=== PATIENT | male | born 1985 | race Caucasian/White ===

== ENCOUNTER 2018-10-07 20:08 | Emergency (ER) | payer SELFPAY ==
[2018-10-07] MEDS ORDERED: ENOX80DI8 SQ ×2 (20:19→21:36)
--- NOTE | 2018-10-07 21:46 | ER Report ---
History and Physical Time Seen By MD: 21:46 Hx. of Stated Complaint: patient c/o about SOB AND PAIN WITH DEEP BREATHING,also states" I WAS DIAGNOSED WITH A BLOODCLOT IN THE LEFT LEG", PATIENT HAS HISTORY OF 3 PREVIOUS CLOTS(RIGHT LEG X1, LEFT LEG X1, PELVIS X1) ) HPI/ROS CHIEF COMPLAINT: Shortness of breath, chest pain HISTORY OF PRESENT ILLNESS: This is a 32-year-old male. He has a history of multiple DVTs in the past. Currently being treated with Lovenox for DVT in his left lower extremity that he had start while he was on Coumadin, even having a supratherapeutic INR of about 4.0. Currently on Lovenox 80 mg twice a day, weight-based dosing for DVT treatment. Started having some chest pain with mild shortness of breath in the right side right flank. He does have a little bit of pain down in the abdomen as well. No fevers. He denies any changes with bowel. No problems with urination. Denies any nausea or vomiting. Deep breaths. Allergies: Coded Allergies: rivaroxaban (Verified Allergy, Unknown, 10/07/18) Home Meds Active Scripts Oxycodone Hcl/Acetaminophen (PERCOCET 5-325 MG TABLET) 1 Each Tablet, 1 EACH PO Q4H PRN for PAIN, #20 TAB 0 Refills Prov:LIVE VILLAGOMEZ MD 10/07/18 Reported Medications Enoxaparin Sodium (LOVENOX) 80 Mg/0.8 Ml Disp.syrin, 80 MG SQ Q12H 10/07/18 Discontinued Reported Medications Enoxaparin Sodium (LOVENOX) 80 Mg/0.8 Ml Disp.syrin, 80 MG SQ 10/07/18 Reviewed Nurses Notes: Yes Hx Substance Use Disorder: No Hx Alcohol Use: No Constitutional Vital Sign - Last 24 Hours 10/07/18 10/07/18 10/07/18 10/07/18 20:15 21:04 21:16 21:32 Temp 97.7 98.1 Pulse 78 82 Resp 12 22 20 B/P (MAP) 126/88 122/91 138/84 (102) Pulse Ox 96 95 98 O2 Delivery Room Air Room Air Room Air 10/07/18 10/07/18 10/07/18 10/07/18 21:45 22:15 22:47 23:00 Pulse 66 70 67 B/P (MAP) 134/114 (121) 122/95 (104) Pulse Ox 91 91 91 O2 Delivery Room Air 10/07/18 10/07/18 10/07/18 10/08/18 23:30 23:45 23:50 00:00 Pulse 71 69 70 B/P (MAP) 122/93 (103) 124/98 (107) Pulse Ox 93 93 91 10/08/18 00:15 Pulse Ox 93 Intake and Output 10/07/18 10/07/18 10/08/18 15:00 23:00 07:00 Intake Total 1000 ml Balance 1000 ml Physical Exam General Appearance: The patient is alert. No acute distress. Respiratory: Lungs are clear to auscultation. Does have some pain with deep breaths. Cardiovascular: Sinus tachycardia but regular rhythm. No murmurs, gallops or rubs. Normal capillary refill. Gastrointestinal: Abdomen is soft, he does have some tenderness in the right side of the abdomen. He does have some right CVA tenderness. Nondistended. No rebound or guarding. Normal active bowel sounds. Neurological: Alert and oriented x3. Skin: Warm and dry. No rashes. Musculoskeletal: Extremities are nontender. No tenderness in palpation of the cervical, thoracic and lumbar spine. DIFFERENTIAL DIAGNOSIS: After history and physical exam, differential diagnosis was considered for patient with new onset right-sided chest pain and some flank pain in the abdomen. Concern for pulmonary embolism given his history of recent DVT and treatment, but also would consider abdominal processes. Medical Decision Making Data Points Result Diagram: 10/07/18219910/07/182199 Laboratory Hematology Test 10/07/18 22:00 10/07/18 22:02 Red Blood Count 5.57 M/uL (4.00-5.60) Mean Corpuscular Volume 86.9 fL (80.0-96.0) Mean Corpuscular Hemoglobin 30.1 pg (26.0-33.0) Mean Corpuscular Hemoglobin Concent 34.6 g/dL (32.0-36.0) Red Cell Distribution Width 14.5 % (11.5-14.5) Mean Platelet Volume 10.1 fL (7.2-11.1) Neutrophils (%) (Auto) 44.6 % (39.4-72.5) Lymphocytes (%) (Auto) 45.5 % (17.6-49.6) Monocytes (%) (Auto) 7.5 % (4.1-12.4) Eosinophils (%) (Auto) 1.5 % (0.4-6.7) Basophils (%) (Auto) 0.9 % (0.3-1.4) Nucleated RBC Relative Count (auto) 0.1 /100WBC Neutrophils # (Auto) 3.8 K/uL (2.0-7.4) Lymphocytes # (Auto) 3.9 K/uL (1.3-3.6) Monocytes # (Auto) 0.6 K/uL (0.3-1.0) Eosinophils # (Auto) 0.1 K/uL (0.0-0.5) Basophils # (Auto) 0.1 K/uL (0.0-0.1) Nucleated RBC Absolute Count (auto) 0.01 K/uL Sodium Level 138 mmol/L (137-145) Potassium Level 4.0 mmol/L (3.5-5.0) Chloride Level 106 mmol/L (98-107) Carbon Dioxide Level 24 mmol/L (22-30) Blood Urea Nitrogen 12 mg/dl (9-21) Creatinine 0.90 mg/dl (0.66-1.25) Glomerular Filtration Rate Calc > 60.0 Random Glucose 86 mg/dl (75-110) Calcium Level 9.2 mg/dl (8.4-10.2) Total Bilirubin 0.5 mg/dl (0.2-1.3) Aspartate Amino Transf (AST/SGOT) 144 U/L (0-35) Alanine Aminotransferase (ALT/SGPT) 331 U/L (0-56) Alkaline Phosphatase 65 U/L (0-126) Total Protein 7.3 g/dl (6.3-8.2) Albumin 4.2 g/dl (3.5-5.0) Urine Color Yellow Urine Clarity Clear Urine pH 6.0 pH (4.8-9.5) Urine Specific [place] 1.017 Urine Protein Negative mg/dL (NEGATIVE) Urine Glucose (UA) Negative mg/dL (NEGATIVE) Urine Ketones Negative mg/dL (NEGATIVE) Urine Blood Negative (NEGATIVE) Urine Nitrite Negative (NEGATIVE) Urine Bilirubin Negative (NEGATIVE) Urine Urobilinogen 2.0 mg/dL (0.2-1.9) Urine Leukocyte Esterase Negative (NEGATIVE) Urine RBC None /HPF (0-2/HPF) Urine WBC 1 /HPF (0-5/HPF) Urine Squamous Epithelial Cells None /LPF (</=FEW) Urine Bacteria Negative /HPF (NONE-FEW) Urine Mucus Few /HPF (NONE-FEW) Chemistry Test 10/07/18 22:00 10/07/18 22:02 White Blood Count 8.5 k/uL (4.5-11.0) Red Blood Count 5.57 M/uL (4.00-5.60) Hemoglobin 16.7 g/dL (14.0-18.0) Hematocrit 48.4 % (42.0-52.0) Mean Corpuscular Volume 86.9 fL (80.0-96.0) Mean Corpuscular Hemoglobin 30.1 pg (26.0-33.0) Mean Corpuscular Hemoglobin Concent 34.6 g/dL (32.0-36.0) Red Cell Distribution Width 14.5 % (11.5-14.5) Platelet Count 161 K/uL (150-450) Mean Platelet Volume 10.1 fL (7.2-11.1) Neutrophils (%) (Auto) 44.6 % (39.4-72.5) Lymphocytes (%) (Auto) 45.5 % (17.6-49.6) Monocytes (%) (Auto) 7.5 % (4.1-12.4) Eosinophils (%) (Auto) 1.5 % (0.4-6.7) Basophils (%) (Auto) 0.9 % (0.3-1.4) Nucleated RBC Relative Count (auto) 0.1 /100WBC Neutrophils # (Auto) 3.8 K/uL (2.0-7.4) Lymphocytes # (Auto) 3.9 K/uL (1.3-3.6) Monocytes # (Auto) 0.6 K/uL (0.3-1.0) Eosinophils # (Auto) 0.1 K/uL (0.0-0.5) Basophils # (Auto) 0.1 K/uL (0.0-0.1) Nucleated RBC Absolute Count (auto) 0.01 K/uL Glomerular Filtration Rate Calc > 60.0 Calcium Level 9.2 mg/dl (8.4-10.2) Total Bilirubin 0.5 mg/dl (0.2-1.3) Aspartate Amino Transf (AST/SGOT) 144 U/L (0-35) Alanine Aminotransferase (ALT/SGPT) 331 U/L (0-56) Alkaline Phosphatase 65 U/L (0-126) Total Protein 7.3 g/dl (6.3-8.2) Albumin 4.2 g/dl (3.5-5.0) Urine Color Yellow Urine Clarity Clear Urine pH 6.0 pH (4.8-9.5) Urine Specific [place] 1.017 Urine Protein Negative mg/dL (NEGATIVE) Urine Glucose (UA) Negative mg/dL (NEGATIVE) Urine Ketones Negative mg/dL (NEGATIVE) Urine Blood Negative (NEGATIVE) Urine Nitrite Negative (NEGATIVE) Urine Bilirubin Negative (NEGATIVE) Urine Urobilinogen 2.0 mg/dL (0.2-1.9) Urine Leukocyte Esterase Negative (NEGATIVE) Urine RBC None /HPF (0-2/HPF) Urine WBC 1 /HPF (0-5/HPF) Urine Squamous Epithelial Cells None /LPF (</=FEW) Urine Bacteria Negative /HPF (NONE-FEW) Urine Mucus Few /HPF (NONE-FEW) Urinalysis Test 10/07/18 22:02 Urine Color Yellow Urine Clarity Clear Urine pH 6.0 pH (4.8-9.5) Urine Specific [place] 1.017 Urine Protein Negative mg/dL (NEGATIVE) Urine Glucose (UA) Negative mg/dL (NEGATIVE) Urine Ketones Negative mg/dL (NEGATIVE) Urine Blood Negative (NEGATIVE) Urine Nitrite Negative (NEGATIVE) Urine Bilirubin Negative (NEGATIVE) Urine Urobilinogen 2.0 mg/dL (0.2-1.9) Urine Leukocyte Esterase Negative (NEGATIVE) Urine RBC None /HPF (0-2/HPF) Urine WBC 1 /HPF (0-5/HPF) Urine Squamous Epithelial Cells None /LPF (</=FEW) Urine Bacteria Negative /HPF (NONE-FEW) Urine Mucus Few /HPF (NONE-FEW) EKG/Imaging Imaging CT angiogram of the chest: Indication: Right-sided pain. Technique: Helical CT was performed through the chest following IV contrast enhancement with 75 cc of Isovue 370. Multiplanar reconstructions and MIP images are reviewed. One of the following dose optimization techniques was utilized in the performance of this exam: Automated exposure control; adjustment of the mA and/or kV according to the patient's size; or use of an iterative reconstruction technique. Specific details can be referenced in the facility's radiology CT exam operational policy. Comparison: None. Pulmonary arteries: Within a medial basilar branch of the right lower lobe pulmonary artery, there is a small/thin filling defect, consistent with pulmonary embolus. It is nonocclusive. The sagittal and coronal reconstructions demonstrate an elongated linear morphology, which may be associated with chronic embolus and recanalization. Therefore, I believe this is of indeterminate acuity. No additional pulmonary artery filling defects are clearly identified in either lung. The central pulmonary arteries are widely patent and normal in caliber. The right heart chambers appear unremarkable. Aorta and great vessels: There is uniform contrast enhancement. There are no signs of dissection or aneurysm. Heart and pericardial soft tissues: Within normal limits. Mediastinal soft tissues: Unremarkable. Lung thomson: Well expanded and clear. No focal opacity. No focal consolidation or volume loss. Pleural spaces: No evidence of effusion, focal pleural thickening, or pneumothorax. Skeletal structures: Well mineralized and intact. Upper abdomen: Unremarkable. IMPRESSION: There is a small/thin filling defect in a right lower lobe pulmonary artery branch, consistent with pulmonary embolus. Based on its morphology, it is of indeterminate age. No other pulmonary artery filling defects are identified. The evaluation of the chest is otherwise unremarkable. A preliminary report was discussed with Dr. Villagomez at [facility] [place] at 2320 hours. Report Dictated By: Dg Banuelos MD at 10/07/2018 11:[address] of the abdomen and pelvis without contrast: Indication: Right flank pain. Technique: Helical CT was performed through the abdomen and pelvis. Multiplanar reconstructions are reviewed. One of the following dose optimization techniques was utilized in the performance of this exam: Automated exposure control; adjustment of the mA and/or kV according to the patient's size; or use of an iterative reconstruction technique. Specific details can be referenced in the facility's radiology CT exam operational policy. Comparison: None. Lower lung thomson: No parenchymal or pleural abnormality is identified. Liver: Normal in size, shape, and density. Gallbladder/biliary tree: The gallbladder is normal in size and homogeneous in density. The bile ducts are normal in caliber. Pancreas: Normal in size, shape, and density. Spleen: Normal in size, shape, and density. Adrenal glands: Within normal limits. Kidneys/urinary bladder: The kidneys are normal in size, shape, and density. There are no signs of urinary tract calculus or obstruction. The bladder is unremarkable, as visualized. Intestinal structures: There is mild diverticulosis in the sigmoid colon. There are no signs of acute diverticulitis. The intestinal structures are otherwise unremarkable, as visualized. There is no evidence of obstruction. A few small lymph nodes are present in the mesentery, which is a nonspecific finding. Pelvis: Unremarkable. Aorta and vascular structures: Within normal limits. Ascites or fluid collections: None seen. Skeletal structures: Intact and unremarkable. Impression: No evidence of urinary tract calculus or obstruction. No acute process is otherwise noted. Report Dictated By: Dg Banuelos MD at 10/07/2018 10:56 PM ED Course/Re-evaluation Clinical Indication for ER IV: Hydration, IV Access ED Course Patient had a CT angiogram of the chest done. It did show a very small nonocclusive thrombus in the lower right lobe of the lung consistent with the patient's pain. No other signs of consolidation or pneumonia. Abdominal pelvis CT was done as well and this is negative for any other acute pathology. Discussed all this with the patient. We suspect a small piece of the blood clot went from his left lower extremity and went to his lung causing a small pulm onary embolism. His vital signs are stable. We will continuing him on his Lovenox and he will follow-up with his just this plan. I did provide some Percocet to help with the pain. Decision to Disposition Date: Oct 07, 2018 Decision to Disposition Time: 23:47 Depart Departure Latest Vital Signs Vital Signs Date Time Temp Pulse Resp B/P (MAP) Pulse Ox O2 Delivery O2 Flow Rate FiO2 10/08/18 00:15 93 10/08/18 00:00 124/98 (107) 10/07/18 23:50 70 10/07/18 23:00 Room Air 10/07/18 21:16 20 10/07/18 21:04 98.1 Impression: Primary Impression: Pulmonary embolism Condition: Improved Disposition: HOME OR SELF-CARE New Scripts Oxycodone Hcl/Acetaminophen (PERCOCET 5-325 MG TABLET) 1 Each Tablet 1 EACH PO Q4H PRN for PAIN, #20 TAB 0 Refills Prov: LIVE VILLAGOMEZ MD 10/07/18 Patient Instructions: Pulmonary Embolism (DC) Additional Instructions: You appear to have had a very small blood clot that has gone to the lower right lung. This causing your pain. Your vital signs are stable at this time. Keep taking your Lovenox and follow-up with Hematology as planned. Percocet 5/325, one every 4 hours as needed for pain. Problem Qualifiers Primary Impression: Pulmonary embolism Pulmonary embolism type: other Chronicity: acute Acute cor pulmonale presence: without acute cor pulmonale Qualified Codes: I26.99 - Other pulmonary embolism without acute cor pulmonale LIVE VILLAGOMEZ MD Oct 07, 2018 21:46
[2018-10-07] MEDS ORDERED: HYDROMORPHONE HCL 1 MG/ML SYRINGE IVP ONE (21:55)
[2018-10-07] MEDS ORDERED: NS(*) 0.9% 1000 ML BAG 1,000 ML IV ONE (21:55)
[2018-10-07 22:07] LABS: PLATELET COUNT, AUTOMATED 161 K/uL (150-450)
[2018-10-07] MEDS ORDERED: NS(*) 0.9% 50 ML BAG 50 ML ONE (22:12)
[2018-10-07] MEDS ORDERED: IOPAMIDOL 76% 75 ML INFUS BTL 75 ML ONE (22:12)
[2018-10-07] MEDS ORDERED: diphenhydrAMINE 50 MG/ML VIAL IVP ONE (22:30)
--- NOTE | 2018-10-07 23:10 | RADIOLOGY IMAGING REPORT ---
FACILITY: [facility] - [place] PATIENT NAME: Junior Gutiérrez : 1985 MR: [id number] V: [id number] EXAM DATE: ORDERING PHYSICIAN: LIVE MINOR TECHNOLOGIST: Location: [facility] Patient: Junior Brock : 1985 Visit/Account:[id number] Date of Sevice: 10/07/2018 CT of the abdomen and pelvis without contrast: Indication: Right flank pain. Technique: Helical CT was performed through the abdomen and pelvis. Multiplanar reconstructions are reviewed. One of the following dose optimization techniques was utilized in the performance of this exam: Autom ated exposure control; adjustment of the mA and/or kV according to the patient's size; or use of an i terative reconstruction technique. Specific details can be referenced in the facility's radiology CT exam operational policy. Comparison: None. Lower lung thomson: No parenchymal or pleural abnormality is identified. Liver: Normal in size, shape, and density. Gallbladder/biliary tree: The gallbladder is normal in size and homogeneous in density. The bile duct s are normal in caliber. Pancreas: Normal in size, shape, and density. Spleen: Normal in size, shape, and density. Adrenal glands: Within normal limits. Kidneys/urinary bladder: The kidneys are normal in size, shape, and density. There are no signs of ur inary tract calculus or obstruction. The bladder is unremarkable, as visualized. Intestinal structures: There is mild diverticulosis in the sigmoid colon. There are no signs of acute diverticulitis. The intestinal structures are otherwise unremarkable, as visualized. There is no mike dence of obstruction. A few small lymph nodes are present in the mesentery, which is a nonspecific fi nding. Pelvis: Unremarkable. Aorta and vascular structures: Within normal limits. Ascites or fluid collections: None seen. Skeletal structures: Intact and unremarkable. Impression: No evidence of urinary tract calculus or obstruction. No acute process is otherwise noted . Report Dictated By: Dg Banuelos MD at 10/07/2018 10:56 PM Report E-Signed By: Dg Banuelos MD at 10/07/2018 11:07 PM WSN:[id number]
[2018-10-07] MEDS ORDERED: ENOXAPARIN 100 MG/ML SYR SC ONE (23:30)
--- NOTE | 2018-10-07 23:46 | RADIOLOGY IMAGING REPORT ---
FACILITY: [facility] PATIENT NAME: Junior Gutiérrez : 1985 MR: [id number] V: [id number] EXAM DATE: ORDERING PHYSICIAN: LIVE VILLAGOMEZ TECHNOLOGIST: Location: [facility] [place] Patient: Junior Brock : 1985 Visit/Account:[id number] Date of Sevice: 10/07/2018 CT angiogram of the chest: Indication: Right-sided pain. Technique: Helical CT was performed through the chest following IV contrast enhancement with 75 cc of Isovue 370. Multiplanar reconstructions and MIP images are reviewed. One of the following dose optimization techniques was utilized in the performance of this exam: Autom ated exposure control; adjustment of the mA and/or kV according to the patient's size; or use of an i terative reconstruction technique. Specific details can be referenced in the facility's radiology CT exam operational policy. Comparison: None. Pulmonary arteries: Within a medial basilar branch of the right lower lobe pulmonary artery, there is a small/thin filling defect, consistent with pulmonary embolus. It is nonocclusive. The sagittal and coronal reconstructions demonstrate an elongated linear morphology, which may be associated with chr onic embolus and recanalization. Therefore, I believe this is of indeterminate acuity. No additional pulmonary artery filling defects are clearly identified in either lung. The central pul monary arteries are widely patent and normal in caliber. The right heart chambers appear unremarkable . Aorta and great vessels: There is uniform contrast enhancement. There are no signs of dissection or a neurysm. Heart and pericardial soft tissues: Within normal limits. Mediastinal soft tissues: Unremarkable. Lung thomson: Well expanded and clear. No focal opacity. No focal consolidation or volume loss. Pleural spaces: No evidence of effusion, focal pleural thickening, or pneumothorax. Skeletal structures: Well mineralized and intact. Upper abdomen: Unremarkable. IMPRESSION: There is a small/thin filling defect in a right lower lobe pulmonary artery branch, consi stent with pulmonary embolus. Based on its morphology, it is of indeterminate age. No other pulmonary artery filling defects are identified. The evaluation of the chest is otherwise unremarkable. A preliminary report was discussed with Dr. Villagomez at [facility] [place] at 2320 hours. Report Dictated By: Dg Banuelos MD at 10/07/2018 11:07 PM Report E-Signed By: Dg Banuelos MD at 10/07/2018 11:42 PM WSN:[id number]
[2018-10-07] MEDS ORDERED: OXYC-865 PO (23:49)
[2018-10-08] VITALS: BP 124/98
[2018-10-08] MEDS ORDERED: oxyCODONE/ACETAMIN 5/325MG TH 2 TAB/BOTTLE PO ONE (00:10)
== END 2018-10-08 00:15 | disposition home or self-care (01) ==
LOC: ER 21:10
DX: I26.99 Other pulmonary embolism without acute cor pulmonale (principal)
CPT/HCPCS: 71275; 74176; 81001; 85025; 96361; 96372; 96374; 99284; J1170; J1650; J7030; J7050; Q9967; 82040; 82247; 82310; 82374; 82435; 82565; 82947; 84075; 84132; 84155; 84295; 84450; 84460; 84520